=== PATIENT | female | born 1975 | race Caucasian/White ===

== ENCOUNTER → 2017-05-03 | Outpatient (CLI) | payer MEDICARE, OTHER ==
[2016-08-28 08:12] VITALS: BP 137/90
[~2017-05-03] MED LIST: AZIT250T PO; FLUT1DIS IH; GABA-585 PO; NAPR550T PO; PRED20TA PO; PROAIR HFA8.5 GM IH; PROAIR HFA8.5 GM INH; TRAM1TAB4 PO; TRAM50TA PO; TRIA1CAP3 PO
--- NOTE | 2017-05-03 16:48 | RAD ---
DATE: 05/03/2017 EXAM: MAMMO EHSAN DIAG BILAT Bilateral digital screening mammography to include digital breast tomosynthesis (3D mammography) HISTORY: Left breast lump. COMPARISON: None. This study was interpreted with the benefit of Computerized Aided Detection (CAD). FINDINGS: Digital MLO and CC mammograms of both breasts were obtained. Additionally digital breast tomosynthesis (3D mammography) images of both breasts in the MLO and CC projections were performed. No previous studies are available for comparison. The breast parenchyma is composed of scattered fibroglandular densities which can obscure a lesion on mammography (breast density code B). No spiculated mass is seen. No malignant appearing calcification or area of architectural distortion is noted. Benign-appearing small Intra mammillary lymph nodes are seen scattered throughout the upper outer quadrant of the left breast. Digital breast tomosynthesis images demonstrate no spiculated mass or malignant appearing calcification. A marker was placed in the posterior upper outer quadrant left breast in the area where the patient feels palpable abnormality. No abnormality is seen in this area mammographically. IMPRESSION: BI-RADS Category 1, negative. There is no mammographic evidence of malignancy. Routine yearly screening mammography is recommended for follow-up. BI-RADS CATEGORY: 1 NEGATIVE RECOMMENDED FOLLOW-UP: 12M 12 MONTH FOLLOW-UP PQRS compliance statement: Patient information was entered into a reminder system with a target due date 2017 for the next mammogram. Mammography is a sensitive method for finding small breast cancers, but it does not detect them all and is not a substitute for careful clinical examination. A negative mammogram does not negate a clinically suspicious finding and should not result in delay in biopsying a clinically suspicious abnormality. "Our facility is accredited by the [employer] Mammography [employer]."
--- NOTE | 2017-05-03 16:51 | RAD ---
Left breast ultrasound 05/15/2017 Clinical history: Palpable lump left breast. Technique: A real-time ultrasound examination of the axillary region of the left breast was performed in the area where the patient feels a palpable abnormality. Multiple images were obtained. Findings: Comparison is made to the patient's diagnostic mammogram performed earlier today. The patient's abnormality appears to represent a benign appearing lymph node in the left axilla which measures 1.8 cm in size. No solid or cystic mass is seen. Impression: The patient's palpable abnormality appears to correspond to a benign-appearing lymph node within the left axilla as outlined above.
== END | disposition home or self-care (01) ==
LOC: KCIC MAMMO 14:37
PROVIDERS: ATTEND Family Medicine
DX: N63 Unspecified lump in breast (principal)
CPT/HCPCS: 76641; G0204; G0279; 77062; 77066

== ENCOUNTER → 2020-11-13 | Outpatient (CLI) | payer MEDICARE, BC ==
[2016-08-28 08:12] VITALS: BP 137/90
[~2020-11-13] MED LIST changes: +ALBU2.5V8 IH; +ALBU2.5V8 INH; +NAPR-682 PO; -NAPR550T PO; -PROAIR HFA8.5 GM IH; -PROAIR HFA8.5 GM INH
--- NOTE | 2020-11-13 13:47 | KCIC ---
EXAM: CT Abdomen and Pelvis without IV contrast INDICATION: Reason: HEMATURIA, RIGHT FLANK PAIN / Spl. Instructions: NO PRIOR / History: TECHNIQUE: Multi-detector row CT images were acquired from the lung bases through the abdomen and pel vis without the use of IV contrast. Sagittal and coronal images were acquired from the transaxial yanelis a. All CT scans performed at this facility utilize dose optimization techniques as appropriate to the exam, including the following: Automated exposure control and adjustment of the mA and/or KV accordi ng to patient size (this includes techniques or standardized protocols for targeted exams where dose is indication/reason for exam). ORAL CONTRAST: None COMPARISON: None FINDINGS: The absence of IV contrast limits evaluation of soft tissue pathology. LOWER CHEST: Unremarkable LIVER: Hepatomegaly and diffuse hepatic steatosis. Liver is 24 cm tall. BILIARY SYSTEM: Cholecystectomy. Bile ducts are not dilated. PANCREAS: Unremarkable SPLEEN: Unremarkable ADRENALS: Unremarkable KIDNEYS & URETERS: Mild right hydronephrosis. No hydroureter or radiopaque stones in either kidney o r ureter. BLADDER: Unremarkable REPRODUCTIVE ORGANS: Unremarkable GASTROINTESTINAL: The stomach, small bowel, and colon are unremarkable. The appendix is normal. MESENTERY/PERITONEUM/RETROPERITONEUM: Unremarkable VASCULAR: Unremarkable LYMPH NODES: No adenopathy OSSEOUS & SOFT TISSUES: Chronic bilateral L5 pars defects. No acute or aggressive appearing osseous lesions. IMPRESSION: Mild right hydronephrosis is a probable sequela of kidney stone passage. No radiopaque stones in the urinary tract identified on CT. Electronically signed by: Rodri Perez MD (11/13/2020 1:44 PM) [id number]
== END ==
LOC: KCIC CT 13:04
PROVIDERS: ATTEND Family Medicine
DX: K76.0 Fatty (change of) liver, not elsewhere classified (principal); R16.0 Hepatomegaly, not elsewhere classified; N13.30 Unspecified hydronephrosis; Z90.49 Acquired absence of other specified parts of digestive tract
CPT/HCPCS: 74176

== ENCOUNTER → 2021-08-14 | Outpatient (CLI) | payer MEDICARE ==
[2016-08-28 08:12] VITALS: BP 137/90
--- NOTE | 2021-08-14 11:47 | KCIC ---
CT HEAD WITHOUT CONTRAST 08/14/2021 10:30 AM Indication: Reason: Migraine. Nausea, dizziness, light sensitivity. Comparison: None Procedure: Multidetector CT imaging of the head was performed without the administration of contrast. Findings: There is no evidence of acute intracranial hemorrhage. There is no evidence of acute territ orial infarction. Please note that CT is limited for evaluation of acute ischemia. No mass effect or midline shift is identified . The ventricles and basilar cisterns have an appropriate appearance. No abnormal extra-axial fluid collections are seen. No acute osseous changes are identified. Impression: No evidence of acute intracranial abnormality CT DOSING PQRS STATEMENT: One or more of the following individualized dose reduction techniques were utilized for this examinat ion: 1. Automated exposure control 2. Adjustment of the mA and/or kV according to patient size 3. Use of iterative reconstruction technique Electronically signed by: Shahzad Tidwell MD (08/14/2021 11:45 AM) [id number]
== END ==
LOC: KCIC CT 10:18
PROVIDERS: ATTEND Nurse Practitioner
DX: I67.82 Cerebral ischemia (principal); G43.909 Migraine, unspecified, not intractable, without status migrainosus
CPT/HCPCS: 70450